=== PATIENT | female | born 1955 | race Caucasian/White ===

== ENCOUNTER 2023-04-01 04:23 | Emergency (ER) | payer BC ==
[2023-04-01] MEDS ORDERED: Tamsulosin 0.4 MG Cap.ER PO ONE (05:08)
[2023-04-01 05:46] LABS: APPEARANCE,URINE CLOUDY (Clear); BILIRUBIN,URINE NEGATIVE (Negative); COLOR,URINE YELLOW (Yellow); GLUCOSE,URINE NEGATIVE (Negative); KETONES,URINE TRACE (Negative); LEUKOCYTE ESTERASE,URINE NEGATIVE (Negative); NITRITE,URINE NEGATIVE (Negative); OCCULT BLOOD,URINE 3+ (Negative); PH,URINE 5.5 (5.0-8.0); PROTEIN,URINE 2+ (Negative); UROBILINOGEN,URINE 0.2 (0.2-1.0)
[2023-04-01 06:26] LABS: BACTERIA,URINE FEW /hpf (FEW); MUCUS,URINE FEW /hpf (FEW); RBC,URINE >100 /hpf (0-5); SQUAMOUS EPITHELIAL CELLS,UR 0-5 /hpf (0-5); WBC,URINE 0-5 /hpf (0-5); YEAST,URINE MANY (NOT SEEN)
== END 2023-04-01 07:36 | disposition home or self-care (01) ==
LOC: JD.ED 04:23
DX: N13.2 Hydronephrosis with renal and ureteral calculous obstruction (principal); Z79.899 Other long term (current) drug therapy
CPT/HCPCS: 74176; 81001; 99284; A9270